=== PATIENT | male | born 1975 | race Caucasian/White ===

== ENCOUNTER 2018-03-01 15:29 | Emergency (ER) | payer MEDICAID ==
[~2018-03-01] VITALS: Ht 185.4 cm; Wt 99.8 kg
[2018-03-01 15:43] VITALS: BP 143/84
[2018-03-01] MEDS: KETOROLAC 60 MG/2 ML VIAL IM ONE (16:23)
[2018-03-01] MEDS: BACITRACIN OINT 500 UNITS/GM PKT TP ONE (17:38)
[2018-03-01 18:14] VITALS: BP 143/84
== END 2018-03-01 18:15 | disposition home or self-care (01) ==
LOC: MED 15:29
DX: S63.612A Unspecified sprain of right middle finger, initial encounter (principal); S09.90XA Unspecified injury of head, initial encounter; W18.30XA Fall on same level, unspecified, initial encounter; Y93.89 Activity, other specified; Y92.89 Other specified places as the place of occurrence of the external cause; Y99.8 Other external cause status
CPT/HCPCS: 73140; 96372; 99283; J1885; Q0092